=== PATIENT | female | born 2000 | race Caucasian/White ===

== ENCOUNTER 2025-06-08 18:29 | Emergency (ER) | payer OTHER, SELFPAY ==
[2025-06-08 18:34] VITALS: BP 109/68; PULSE 69; RESP 18; O2SAT 97; BMI 25.3
[2025-06-08 18:55] VITALS: TEMP 37
--- NOTE | 2025-06-08 19:13 | ED.GENADULT ---
HPI - General Adult General Chief complaint: Laceration/Wound Stated complaint: lac on face Time Seen by Provider: 06/08/25 19:13 History of Present Illness HPI narrative: Pt reports working on [employer] part when a metal frame fell and hit her in the R side of her forehead. Pt states she ' nearly passed out'. Pt rates pain 7/10. Pt has laceration above R eyebrow . Bleeding is controlled. 24-year-old young woman presenting to the emergency department after sustaining head injury to the right forehead. Was working, helping in her [employer] shop when it sounds like a piece of alina plate that had been propped up fell forward striking him in the head as well as her. She may have caught more of a corner. Loss of consciousness. No neck or back pain. Bleeding has been controlled. No visual changes. A little stressed as anticipating upcoming pictures for their wedding. Accompanied by said fifernando. Related Data Home Medications ?Medication ?Instructions ?Recorded ?Confirmed No Known Home Medications 06/08/25 06/08/25 Allergies Allergy/AdvReac Type Severity Reaction Status Date / Time No Known Drug Allergies Allergy Verified 06/08/25 18:40 Review of Systems Status of ROS: Reports: 6 or more systems reviewed and unremarkable except as noted in History and below PFSH [facility] Social History Smoking Status: Never smoker How often do you have a drink containing alcohol: monthly or less AUDIT-C Alcohol total score: 1 Non-prescribed substance use: denies use Exam Narrative: Exam Narrative: Pleasant. NAD. Holding gauze which is lightly stained with blood at the right forehead. Cranial nerves 2-12 intact. Pupils are 3 mm and equal and briskly reactive. Extraocular movements are full. Neck is supple nontender. Area of injury in the right forehead near the outer aspect of the brow. Tender to palpation here generally. Do not appreciate bony defect. This is full dermal. Bleeds lightly when manipulated. This is an irregular angulated laceration measuring 4 cm. Lightly gapping. Const: Vital Signs, click to edit/add: Vital Signs - 24 hr 06/08/25 18:34 06/08/25 18:55 Temperature 98.6 F Pulse Rate [Right] 69 Respiratory Rate 18 Blood Pressure [Le ft Upper Arm] 109/68 Pulse Oximetry 97 Oxygen Delivery Me thod Room Air Documenting provider has reviewed patient's vital signs: yes Course Vital Signs Vital signs: Initial Vital Signs Pulse Rate 69 06/08/25 18:34 Pulse Rhythm Regular 06/08/25 18:34 Respiratory Rate 18 06/08/25 18:34 Blood Pressure 109/68 06/08/25 18:34 Blood Pressure Mean 81 06/08/25 18:34 Blood Pressure Position Sitting 06/08/25 18:34 Pulse Oximetry 97 06/08/25 18:34 Oxygen Delivery Method Room Air 06/08/25 18:34 Vital Signs Pulse Rate 69 06/08/25 18:34 Respiratory Rate 18 06/08/25 18:34 Blood Pressure 109/68 06/08/25 18:34 Pulse Oximetry 97 06/08/25 18:34 Oxygen Delivery Method Room Air 06/08/25 18:34 Temperature 98.6 F 06/08/25 18:55 Pulse Rate 69 06/08/25 18:34 Respiratory Rate 18 06/08/25 18:34 Blood Pressure 109/68 06/08/25 18:34 Pulse Oximetry 97 06/08/25 18:34 Oxygen Delivery Method Room Air 06/08/25 18:34 Medical Decision Making MDM Narrative Medical decision making narrative: Discussed options for repair. She has not had laceration requiring repair before. Is nervous about needles but does admit that she has a tattoo. I think sutures would provide best result here. Does not have evidence of concussion or neck injury. Do not think there is a calvarial fracture; did not visualize bony injury on exam of the wound. Returned to anesthetize with lidocaine with epinephrine. Considered placement near supraorbital nerve but control of field I think will be helpful therefore choice of lidocaine with epinephrine. Excellent anesthesia achieved. Cleansed further with Shur-Clens solution. Closed with interrupted 6 0 Ethilon sutures. Very good wound approximation and control of bleeding. Antibiotic ointment and Band-Aid placed. She tolerated this quite well. Does have partial paralysis now of the right brow not entirely unexpected from this injection. Did notice this prior to departure and mentioned this to Miya. I would expect this to resolve within 48 hours. DTaP is current See patient discharge plan for further discussion Sutures out in 6-7 days. Antibiotic ointment for 4-5 days and then to a dry dressing. Okay to get wet but try not to soak while sutures are in. Watch for spreading redness after 2 days accompanied by heat, swelling, marked increase in pain, purulent drainage. For further scar reduction/wound healing if desired -- After scab falls off can apply daily vitamin E oil or something like maderma or silicone containing ointments or Band-Aids daily. Especially protect from sun exposure for the 1st 9-12 months. Discharge Plan Discharge Clinical Impression: Forehead laceration, Closed head injury Patient Disposition: Home, Self-Care Condition: Improved Additional Instructions: Sutures out in 6-7 days. Antibiotic ointment for 4-5 days and then to a dry dressing. Okay to get wet but try not to soak while sutures are in. Watch for spreading redness after 2 days accompanied by heat, swelling, marked increase in pain, purulent drainage. For further scar reduction/wound healing if desired -- After scab falls off can apply daily vitamin E oil or something like maderma or silicone containing ointments or Band-Aids daily. Especially protect from sun exposure for the 1st 9-12 months. Prescriptions: No Action No Known Home Medications Follow Up/Referrals: Provider,Not a Local [Primary Care Provider, Family Practice] Stand Alone Forms: [facility] Info Instructions Procedures Laceration Laceration 1: Pre procedure diagnosis: Forehead laceration Post procedure diagnosis: Forehead laceration Site marking: not applicable Site: face Side (If applicable): right Size (cm): 4 Description: irregular and clean (Trace linear debris medially) Depth: simple, single layer (Full dermal) Local Anesthetic: lidocaine 1% and with epi Amount of anesthesia used (mL): 1.5 Pre-repair: wound explored Skin layer closed with: nylon Size (cm): 6-0 Technique: simple, interrupted Wound cleansing: soap (Shur-Clens like solution) Estimated blood loss (if any): none Conclusion: patient tolerated procedure
--- OUTSIDE RECORDS SUMMARY | 2025-06-08 19:39 | XMS_ITS | Clinical Summary ---
Author Organization [facility] Address [address] [place] [id number] Care Team Providers Care On Air Talent Name Role Phone Pcp, No Primary Care Provider Unavailabl e Allergies No known active allergies Medications No known medications Social History Tobacco Use Types Packs/Day Years Used Date Smoking Tobacco: Never Assessed Comments No Sex and Gender Information Value Date Recorded Sex Assigned at Not on file Legal Sex Female 3:13 PM CDT Gender Identity Not on file Sexual Orientation Not on file Last Filed Vital Signs Vital Sign Reading Time Taken Comments Blood Pressure 113/66 06/26/2023 6:51 PM CDT Pulse 64 06/26/2023 6:51 PM CDT Temperature 37.2 C (99 F) 06/26/2023 4:41 PM CDT Respiratory Rate 18 06/26/2023 6:51 PM CDT Oxygen Saturation 100% 06/26/2023 6:51 PM CDT Inhaled Oxygen Concentration - - Weight 77.1 kg (170 lb) 06/26/2023 4:41 PM CDT Height 175.3 cm (5' 9) 06/26/2023 4:41 PM CDT Body Mass Index 25.1 06/26/2023 4:41 PM CDT Plan of Treatment Health Maintenance Due Date Last Done Comments Tetanus booster 2011 Depression screening for age 12+ 2012 HIV for age 15-65 2015 HPV series for age 9-26 (1 - 3-dose series) 2015 BMI (ht and wt on same day) for age 18+ 2018 Hepatitis C screening for ag e 18-79 2018 Hepatitis B series for 19+ ( 1 of 3 - 19+ 3-dose series) 2019 Pap test for age 21-65 2021 COVID-19 vaccine series ( season) 2024 01/27/2021, 12/30/2020 Influenza Vaccine (#1) 2025 Pneumococcal series for age 6-49 Aged Out No longer eligible b ased on patient's age to complete this topic Care Teams On Air Talent Relationship Specialty Start Date End Date Pcp, No . PCP - General 06/26/23
--- OUTSIDE RECORDS SUMMARY | 2025-06-08 19:39 | XMS_ITS | Clinical Summary ---
Author Organization [facility] Address [address] [place] [address] Care Team Providers Care Legal Collector Name Role Phone Needs Pcp, Assignment Primary Care Provider [phone] Source Comments You are receiving this document as you are listed as the primary care provider,follow-up provider, or the patient has been referred to you for consultation.This is in compliance with the Medicare and[facility] EHR Incentive Program,which states Providers who transition their patient to another setting of careor provider of care or refers their patient to another provider of care shouldprovide summary care record for each transition of care or referral. [facility] Allergies No known active allergies Medications Ibuprofen 200 MG capsule Take 2 Capsules by mouth. Active Immunizations Immunization Administration Dates Next Due Tdap 08/05/2024 Family History Medical History Relation Name Comments Heart Disease Father Asthma Maternal Grandmother Asthma Paternal Grandfather Skin Disease Paternal Grandmother Relation Name Status Comments Father Alive Mother Alive Brother Alive Maternal Grandfather Alive Maternal Grandmother Alive Paternal Grandfather Alive Paternal Grandmother Alive Social History Tobacco Use Types Packs/Day Years Used Date Smoking Tobacco: Never Smokeless Tobacco: Never Tobacco Cessation:Counseling Given: Not Answered Alcohol Use Standard Drinks/Week Comments Yes 0 (1 standard drink = 0.6 oz pur e alcohol) Socially Comments No Sex and Gender Information Value Date Recorded Sex Assigned at Not on file Legal Sex Female 10:48 AM [employer] Gender Identity Not on file Sexual Orientation Not on file 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 Not on file Not on file Last Filed Vital Signs Vital Sign Reading Time Taken Comments Blood Pressure 105/73 08/05/2024 8:25 AM CDT Pulse 80 08/05/2024 8:25 AM CDT Temperature - - Respiratory Rate - - Oxygen Saturation - - Inhaled Oxygen Concentration - - Weight 78.9 kg (174 lb) 08/05/2024 8:25 AM CDT Height 172.7 cm (5' 8) 08/05/2024 8:25 AM CDT Body Mass Index 26.46 08/05/2024 8:25 AM CDT Plan of Treatment Health Maintenance Due Date Last Done Comments Hep C Screening (Preventive Services) 2000 HPV Vaccine (3 - 2-dose series) 10/30/2013 07/15/2013, 04/30/2013 HepA Vaccine (2 of 2 - 2-dose series) 04/04/2014 10/05/2013 HIV Screening (Preventive Services) 2016 HepB Vaccine (1) 2019 COVID-19 Vaccine ( season) 2024 01/27/2021, 12/30/2020 Influenza Vaccine (#1) 2025 10/05/2013 Adult Preventive Visit 08/05/2025 08/05/2024 Chlamydia 08/05/2025 08/05/2024 Cervical Cancer Screening 08/05/2027 08/05/2024 DTaP/Tdap/Td Vaccine (8 - Tdap) 08/05/2034 08/05/2024, 04/30/2013, 07/15/2006, Additional history exists Zoster/Shingles Vaccine (1 of 2) 2050 Pneumococcal Vaccine Aged Out 12/24/2001, 03/11/2001, 01/13/2001 No longer eligible based on patient's age to complete this topic Hib Vaccine Completed 07/15/2006, 04/2002, 09/10/2001, Additional history exists IPV (Polio) Vaccine Completed 07/15/2006, 12/24/2001, 01/13/2001, Additional history exists MCV4 Vaccine Aged Out 04/30/2013 No longer eligi ble based on patient's age to complete this topic Meningococcal B Vaccine Aged Out No l onger eligible based on patient's age to complete this topic Procedures Procedure Name Priority Date/Time Associated Diagnosis Comments CHLAMYDIA & GC (14 YEARS & OLDER) Routine 08/05/2024 8:59 AM CDT Dysmenorrhea CYTOLOGY (PAP) Routine 08/05/2024 8:47 AM CDT Screening for malignant neoplasm of cervix from Last 3 Months or Most Recently Relevant to Health Maintenance Results * Chlamydia & GC (14 Years and Older): Vagina (08/05/2024 8:59 AM CDT) Chlamydia Trachomatis STD Not Detected Not Detected 08/06/2024 1:45 AM CDT [facility] N. gonorrhoeae STD Not Detected Not Detected 08/06/2024 1:45 AM CDT [facility] Swab STD SPECIMEN FROM VAGINA / Unknown Non-blood Collection / Unknown 08/05/2024 8:59 AM CDT 08/05/2024 11:19 AM CDT Narrative [facility] - 08/06/2024 1:45 AM CDT Test performed by [employer] Mediated Amplification (TMA). us Rubi Oswald MD LAB_1 Final Result Performing Organization Address City/State/[facility] Co de Phone Number [facility] [address] * PAP Test (08/05/2024 8:47 AM CDT) Case Report Pap Case: [id number] Authorizing Provider: Rubi Oswald MD Collected: 08/05/2024 0847 Ordering Location: [place] [address] Received: 08/05/2024 1120 Obstetrics/Gynec ology First Screen: Naima Mason Specimen: Pap Test, Routine, Cervix/Endocervix 08/29/2024 10:07 AM CDT [facility] Pap Specimen Adequacy Satisfactory for evaluation, endocervical/sin sformation zone component present. 08/29/2024 10:07 AM CDT [facility] Pap Interpretation (NILM) Negative for intraepithelial lesion or malignancy. 08/29/2024 10:07 AM CDT [facility] at 1007 CDT Pap Disclaimer The Pap test is a screening test to aid in the detection of cervical and vaginal cancers and their precursor lesions. It is not a diagnostic procedure and should not be used as the sole means of detecting malignancy. Both false-positive and false-negative results may occur. 08/29/2024 10:07 AM CDT [facility] Gross Description The specimen is received in SurePath fixative and properly labeled. 1 Pap-stained SurePath slide is prepared. 08/29/2024 10:07 AM CDT [facility] Embedded Images 10:07 AM CDT [facility] Other Specimen Type ENTIRE ENDOCERVIX / Unknown 08/05/2024 8:47 AM CDT 08/05/2024 11:20 AM CDT Comment:LMP: Patient's last menstrual period was 07/14/2024 (exact date). Rubi Oswald MD LAB PATHOLOGY Final Result [facility] [address] [place] [address], [facility] from Last 3 Months or Most Recently Relevant to Health Maintenance Insurance [address] [facility] [place] [address] 1954 [facility] [place] [address] [employer] Care Teams Legal Collector Relationship Specialty Start Date End Date Needs Pcp, [place] [address] PCP - General 08/05/24
== END 2025-06-08 20:35 | disposition home or self-care (01) ==
PROVIDERS: Emergency Provider Family Medicine
DX: S01.111A Laceration without foreign body of right eyelid and periocular area, initial encounter (principal); W26.8XXA Contact with other sharp object(s), not elsewhere classified, initial encounter
CPT/HCPCS: 12013; 99283; 99284